=== PATIENT | male | born 1955 | race Caucasian/White ===

== ENCOUNTER 2020-02-14 09:23 | Emergency (ER) | payer OTHER ==
[~2020-02-14] VITALS: Ht 172.7 cm; Wt 120.2 kg
[2020-02-14] MEDS ORDERED: Tobrex Ophth S2.5 ML OPH (10:01)
== END 2020-02-14 10:06 | disposition home or self-care (01) ==
LOC: ED 09:23
DX: S05.01XA Injury of conjunctiva and corneal abrasion without foreign body, right eye, initial encounter (principal); Z88.5 Allergy status to narcotic agent; X58.XXXA Exposure to other specified factors, initial encounter; Y93.89 Activity, other specified; Y92.89 Other specified places as the place of occurrence of the external cause; Y99.8 Other external cause status

== ENCOUNTER 2020-10-03 18:40 | Emergency (ER) | payer OTHER ==
[~2020-10-03] VITALS: Ht 170.1 cm; Wt 117.9 kg
[~2020-10-03 18:40] MED LIST: Tobrex Ophth S2.5 ML OPH
[2020-10-03] MEDS ORDERED: PREDNISONE20 M1 PO (20:10)
== END 2020-10-03 20:21 | disposition home or self-care (01) ==
LOC: ED 18:40
DX: R21 Rash and other nonspecific skin eruption (principal); F17.200 Nicotine dependence, unspecified, uncomplicated; Z88.5 Allergy status to narcotic agent